=== PATIENT | female | born 1975 | race Caucasian/White ===

== ENCOUNTER 2020-06-18 16:24 | Outpatient (REF) | payer OTHER, SELFPAY ==
--- NOTE | 2020-06-18 | MM_ITS ---
EXAMINATION: MM SCREENING DIGITAL BREAST TOMOSYNTHESIS, BILATERAL CLINICAL INFORMATION: Screening. Asymptomatic. Family history breast cancer, mother. The lifetime risk of breast cancer based on the Tyrer-Cuzick Model is 26%. COMPARISON: Mammography: 12/10/2018, 11/06/2017, 10/19/2016 TECHNIQUE: Digital breast tomosynthesis is performed in both the craniocaudal and mediolateral oblique views along with computer-aided detection (CAD). Synthesized 2D images are generated from the tomosynthesis. FINDINGS: There are scattered areas of fibroglandular density (ACR BI-RADS breast composition Category b). Scattered parenchymal asymmetries are similar to prior studies. There is no developing density or interval mass or architectural abnormality. Again, there are dermal lesions overlying the mid inner and mid outer right breast. No significant changes. MM/MM tomosynthesis screening BI IMPRESSION: No mammographic evidence of malignancy. ASSESSMENT: BI-RADS 2: Benign RECOMMENDATION: 1. Routine annual mammography screening. 2. The lifetime risk of breast cancer based on the Tyrer-Cuzick Model is 26%. Additional annual adjunct screening with breast MRI may be of benefit in women with a risk score of 20% or greater. This patient's information was entered into a reminder system with a target due date for their next mammogram.
== END 2020-06-18 16:25 | disposition home or self-care (01) ==
LOC: HO.MAMMO 16:24
PROVIDERS: Visit Provider Internal Medicine
DX: Z12.31 Encounter for screening mammogram for malignant neoplasm of breast (principal)
CPT/HCPCS: 77063; 77067

== ENCOUNTER 2021-09-06 08:15 | Outpatient (REF) | payer OTHER, SELFPAY ==
--- NOTE | ~2021-09-06 | MM_ITS ---
EXAMINATION: MM SCREENING DIGITAL BREAST TOMOSYNTHESIS, BILATERAL CLINICAL INFORMATION: Screening. Asymptomatic. The lifetime risk of breast cancer based on the Tyrer-Cuzick Model is 25%. COMPARISON: Mammography: 06/18/2020, 12/10/2018, 11/06/2017, 10/19/2016, 09/13/2015, 07/13/2014 TECHNIQUE: Digital breast tomosynthesis is performed in both the craniocaudal and mediolateral oblique views along with computer-aided detection (CAD). Synthesized 2D images are generated from the tomosynthesis. FINDINGS: There are scattered areas of fibroglandular density (ACR BI-RADS breast composition Category b). There are no significant masses, abnormal calcifications, or other abnormalities. There are scattered shifting fibroglandular parenchymal densities overall similar to prior studies. Scattered asymmetries are similar to prior studies. There is no developing density or interval mass or architectural abnormality. No abnormal calcifications. The axilla and skin contours are unremarkable. MM/MM tomosynthesis screening BI IMPRESSION: No significant changes from prior studies. ASSESSMENT: BI-RADS 2: Benign RECOMMENDATION: 1. Routine annual mammography screening. 2. The lifetime risk of breast cancer based on the Tyrer-Cuzick Model is 25%. Additional annual adjunct screening with breast MRI may be of benefit in women with a risk score of 20% or greater. This patient's information was entered into a reminder system with a target due date for their next mammogram.
== END 2021-09-06 08:16 | disposition home or self-care (01) ==
LOC: HO.MAMMO 08:15
PROVIDERS: Visit Provider Internal Medicine
DX: Z12.31 Encounter for screening mammogram for malignant neoplasm of breast (principal)
CPT/HCPCS: 77063; 77067

== ENCOUNTER 2021-09-22 08:50 | Outpatient (REF) | payer OTHER, SELFPAY ==
[2021-09-22 15:10] LABS: CT PCR NOT DETECTED (Not Detect.); NG PCR NOT DETECTED (Not Detect.)
[2021-09-23 13:00] LABS: BV Int Neg Control Negative (Negative); BV Int Pos Control Positive (Positive)
[2021-09-25 09:36] LABS: HPV mRNA E6/E7 rflx Not Detected (Not Detected)
== END 2021-09-22 08:51 | disposition home or self-care (01) ==
LOC: HO.LAB 08:50
PROVIDERS: PCP Internal Medicine; Visit Provider Advanced Practice Midwife
DX: Z01.411 Encounter for gynecological examination (general) (routine) with abnormal findings (principal); Z11.51 Encounter for screening for human papillomavirus (HPV); Z20.2 Contact with and (suspected) exposure to infections with a predominantly sexual mode of transmission; N95.1 Menopausal and female climacteric states
CPT/HCPCS: 81025; 87480; 87491; 87510; 87591; 87624; 87660; 88142

== ENCOUNTER 2022-07-01 10:16 | Outpatient (REF) | payer OTHER, SELFPAY ==
--- NOTE | ~2022-07-01 | XR_ITS ---
EXAMINATION: XR CHEST CLINICAL INFORMATION: Cough COMPARISON: None TECHNIQUE: 2 views of the chest were obtained. FINDINGS: No significant abnormality is noted involving the heart, lungs, mediastinum, bony thorax or soft tissues. XR/XR chest 2V IMPRESSION: Unremarkable examination.
== END 2022-07-01 10:17 | disposition home or self-care (01) ==
LOC: HO.HMGCX 10:16
PROVIDERS: PCP Internal Medicine; Visit Provider Internal Medicine
DX: R05.9 Cough, unspecified (principal); M54.9 Dorsalgia, unspecified
CPT/HCPCS: 71046

== ENCOUNTER 2022-09-19 08:58 | Outpatient (REF) | payer OTHER, SELFPAY ==
--- NOTE | ~2022-09-19 | MM_ITS ---
EXAMINATION: MM SCREENING DIGITAL BREAST TOMOSYNTHESIS, BILATERAL CLINICAL INFORMATION: Screening. Asymptomatic. The lifetime risk of breast cancer based on the Tyrer-Cuzick Model is 21%. COMPARISON: Mammography: 09/06/2021, 06/18/2020, 12/10/2018 TECHNIQUE: Digital breast tomosynthesis is performed in both the craniocaudal and mediolateral oblique views along with computer-aided detection (CAD). Synthesized 2D images are generated from the tomosynthesis. FINDINGS: There are scattered areas of fibroglandular density (ACR BI-RADS breast composition Category b). Parenchymal pattern is similar to prior studies. Again, there are scattered bilateral parenchymal asymmetries without developing density or significant mass or architectural abnormality. No abnormal calcifications. There are multiple benign dermal calcifications overlying the posterior medial breasts. There is small smooth nodule anterior central left breast, decreased in size. There are dermal lesions overlying the mid inner and mid outer right breast again noted as incidental finding. The axilla are unremarkable. MM/MM tomosynthesis screening BI IMPRESSION: No mammographic evidence of malignancy. ASSESSMENT: BI-RADS 2: Benign RECOMMENDATION: Routine annual mammography screening. This patient's information was entered into a reminder system with a target due date for their next mammogram.
== END 2022-09-19 08:59 | disposition home or self-care (01) ==
LOC: HO.MAMMO 08:58
PROVIDERS: PCP Internal Medicine; Visit Provider Internal Medicine
DX: Z12.31 Encounter for screening mammogram for malignant neoplasm of breast (principal)
CPT/HCPCS: 77063; 77067

== ENCOUNTER → 2022-12-21 09:24 | Outpatient (BNVA) | payer OTHER, SELFPAY | PROVIDERS: PCP Internal Medicine; Visit Provider Advanced Practice Midwife ==

== ENCOUNTER 2023-02-03 17:26 | Outpatient (AMB) | payer OTHER, SELFPAY ==
--- NOTE | 2023-02-03 17:29 | MHC.PC.OV ---
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 Accompanied by: Self / Same As Patient Allergies No Known Allergies Allergy (Mild, Verified 02/03/23 17:41) NOT APPLICABLE Medication List - Last Reconciled 02/03/23 by Tawana Mayfield MD No Known Home Meds Tobacco use date assessed: 02/03/23 Dental Screening Dental Screen Date: 02/03/23 Did you have a dental visit in the last 12 months?: Yes Did you have a dental problem in the last 6 months where you did not have access to dental care?: No Was dental information given to patient?: Patient has dentist HPI HPI Comments History of Present Illness Details This is a 47-year-old female that comes for her physical exam. Due to problems at home she has developed mild major depression and would like a counseling referral. Last mammogram was September 2022 and was normal. Last Pap smear was September 2021 and was normal with HPV negative. Has never had a colonoscopy and is willing to do Cologuard to screen for colon cancer. No chest pain or shortness of breath. [facility] Medical History Lumbar pain Skin lesion Surgical History History of appendectomy History of biopsy Family History Father Diabetes Hypertension Stroke Mother Breast cancer Thyroid cancer Daughter In good health Sister In good health Brother In good health Social History Housing: House Alcohol intake: never Patient Tobacco Use Status: Current everyday Tobacco user Tobacco use type: Cigarette Cigarette Packs Per Day: 1 e-Cigarette/Vaping Use: Never Used Second Hand Smoke Exposure: No service: No Current occupational status: employed Current occupational exposures/hazards: No Cognitive needs: No Hearing needs: No Vision needs: No Female Reproductive History Menstrual Age of Menarche: 9 Questionnaire PHQ-9 Over the last 2 weeks, how often have you been bothered by any of the following problems? 1. Little interest or pleasure in doing things: several days 2. Feeling down, depressed, or hopeless: more than half the days 3. Trouble falling or staying asleep, or sleeping too much: several days 4. Feeling tired or having little energy: more than half the days 5. Poor appetite or overeating: nearly every day 6. Feeling bad about yourself - or that you are a failure or have let yourself or your family down: not at all 7. Trouble concentrating on things, such as reading the newspaper or watching television: not at all 8. Moving or speaking so slowly that other people could have noticed. Or the opposite - being so fidgety or restless that you have been moving around a lot more than usual: not at all 9. Thoughts that you would be better off or of hurting yourself in some way: not at all Total score: 9 Depression Screening Interpretation: Positive Depression Screening Follow-up: Existing condition 84164 - PHQ-9 Billing: Yes Source: Developed by Drs. Darrian Coe, Cinthia Salazar, Carlos Alberto Evangelista and colleagues, with an educational quan from [employer]. Thrive Questionnaire Date Thrive assessed: 02/03/23 I am a: Patient What is your living situation today?: I have a steady place to live Within the past 12 months, did the food you bought not last and you didn't have the money to get more?: Never true Within the past 12 months, did you worry whether your food would run out before you got money to buy more?: Never true Do you have trouble paying for medicines?: No Do you have trouble getting transportation to medical appointments?: No Do you have trouble paying your heating and electricity bill?: No Do you have trouble taking care of your child, family member or friend?: No Do you have trouble with day-to-day activities such as bathing, preparing meals, shopping, managing finances, etc.?: No Are you currently unemployed and looking for a job?: No Are you interested in more education?: No Please select the resources that you would like help with: None Currently or been in a relationship where the following occur: no concerns reported AUDIT C Alcohol Use Questionnaire (AUDIT-C) 1. How often do you have a drink containing alcohol?: Never Total Score: 0 CHARISSA-7 AMB Questionnaire CHARISSA-7 Date CHARISSA - 7 assessed: 02/03/23 Feeling nervous, anxious, or on edge: 0 = Not at all Not being able to stop or control worryin = Not at all Worrying too much about different things: 0 = Not at all Trouble relaxin = Not at all Being so restless that it is hard to sit still: 0 = Not at all Becoming easily annoyed or irritable: 0 = Not at all Feeling afraid as if something awful might happen: 0 = Not at all Total CHARISSA-7 score (0-4 normal; 5-9 mild; 10-14 moderate; 15-21 severe): 0 Source: Developed by Drs. Darrian Coe, Cinthia Salazar, Carlos Alberto Evangelista and colleagues, with an educational quan from [employer]. CHARISSA-7 Assessment Billing CHARISSA-7 Assessment Tool: CHARISSA-7 Assessment 98061 Review of Systems Const All systems reviewed & are unremarkable except as noted in HPI and below Eyes Reports no additional complaints, Denies change in vision and Denies other visual disturbances Card Denies chest pain at rest, Denies chest pain with activity, Denies edema, Denies irregular heart rhythm, Denies claudication, Denies dyspnea, Denies dyspnea on exertion, Denies orthopnea, Denies paroxysmal nocturnal dyspnea and Denies slow heart rate Resp Denies cough, Denies dyspnea and Denies dyspnea on exertion GI Denies abdominal pain, Denies change in bowel habits, Denies excessive flatus, Denies nausea and Denies vomiting Denies urinary incontinence, Denies urinary hesitancy and Denies urinary urgency Musc Denies abnormal gait, Denies atrophy, Denies deformity and Denies limited range of motion Skin/Breast Denies bleeding lesions, Denies changing lesions and Denies rash Neuro Denies abnormal gait and Denies lack of coordination Physical exam (Primary Care) Vital Signs: Last Vital Signs BP 118/80 02/03/23 17:34 BMI result Body Mass Index 30.2 Tobacco/Smoking Status: Tobacco use Status Tobacco use date assessed 02/03/23 02/03/23 17:41 Patient Tobacco Use Status Current everyday Tobacco 02/03/23 17:30 Tobacco use type Cigarette 02/03/23 17:30 e-Cigarette/Vaping Use Never Used 02/03/23 17:30 PHQ-9: PHQ-9 Score PHQ-9: Total score 9 02/03/23 17:46 Depression Screening Interpretation: Positive Depression Screening Follow-up: Existing condition Thrive Assessment: Date of Thrive Assessment Date Thrive assessed 02/03/23 02/03/23 17:41 Currently or been in a relationship where the following occur: no concerns reported Const Orientation/consciousness: patient oriented x3 HENMT Head: Yes normal to inspection, Yes normocephalic and Yes atraumatic Ears: external ears normal Eyes General: appearance normal, both eyes and all related structures Eyelids: Yes eyelids normal Conjunctivae: conjunctivae normal Neck Neck: Yes normal visual inspection and Yes supple Resp Effort & Inspection: normal respiratory effort Auscultation: clear to auscultation bilaterally Cardio Jugular venous distension: no JVD Rate: regular rate Rhythm: regular rhythm Heart sounds: S1 normal heart sound present and S2 normal heart sound present GI Inspection: Yes normal to inspection Palpation (GI): Soft to palpation and nontender Auscultation: normal bowel sounds Skin General skin exam: no rashes or lesions noted Neuro General: patient oriented x3 and no focal motor deficits Extrem General: Yes full ROM Psych Appearance: grossly normal Assessment and Plan Assessment & Plan (1) Physical exam: Code(s): Z00.00 - Encounter for general adult medical examination without abnormal findings Plan: Repeat in a year (2) Mild major depression: Code(s): F32.0 - Major depressive disorder, single episode, mild Plan: Referred to counseling. Orders: Orders Comprehensive [place]. Panel Fast Today Z00.00 - Encounter for general adult medical examination without abnormal findings Lipid Panel Today Z00.00 - Encounter for general adult medical examination without abnormal findings Referrals Counseling Referral F32.0 - Major depressive disorder, single episode, mild Cologuard Test Z12.11 - Encounter for screening for malignant neoplasm of colon, Z12.12 - Encounter for screening for malignant neoplasm of rectum Coding Level of Care Code Est Pt Prev Care 40-64y(78737) Diagnoses Physical exam Z00.00 Mild major depression F32.0 Additional Codes CHARISSA-7 Assessment Billing - CHARISSA-7 Assessment Tool: CHARISSA-7 Assessment 09807 ([id number]) Time Spent (min) 33
[2023-02-03 17:34] VITALS: BP 118/80; BMI 30.2
== END 2023-02-03 18:02 | disposition home or self-care (01) ==
PROVIDERS: Visit Provider Internal Medicine
DX: Z00.00 Encounter for general adult medical examination without abnormal findings (principal); F32.0 Major depressive disorder, single episode, mild
CPT/HCPCS: 99396

== ENCOUNTER 2023-08-31 09:07 | Outpatient (AMB) | payer OTHER, SELFPAY ==
--- NOTE | 2023-08-31 09:11 | A.OFFVIS_ITS ---
Intake Vital Signs 08/31/23 09:15 Height 5 ft 7 in Weight 198 lb BMI 31.0 BP 131/75 Blood Pressure Location Rt brachial Position Sitting Pulse 87 Intake Visit Reasons: Calculus of gallbladder Intake Note: Patient here to follow up from ER visit. Was seen at [facility] ER on 08-15-23. See [facility] Abd US dated 08-16-23. Patient c/o: Intermittent RUQ pain that gets worse at night. Ibuprofen helps. 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 Because of progression of symptoms this was investigated with vitor valenzuela demonstrated cholelithiasis. Patient otherwise has been able to tolerate a diet. She has regular bowel habits for her which are infrequent. She has never been jaundiced before. Chart was reviewed and patient evaluated COUNTS INCLUDE 234 BEDS AT THE [facility] Medical History Lumbar pain Skin lesion Surgical History History of appendectomy History of biopsy Family History Father Diabetes Hypertension Stroke Mother Breast cancer Thyroid cancer Daughter In good health Sister In good health Brother In good health Social History Housing: House Alcohol intake: never Patient Tobacco Use Status: Current everyday Tobacco user Tobacco use type: Cigarette Cigarette Packs Per Day: 1 e-Cigarette/Vaping Use: Never Used Second Hand Smoke Exposure: No service: No Current occupational status: employed Current occupational exposures/hazards: No Cognitive needs: No Hearing needs: No Vision needs: No Female Reproductive History Menstrual Age of Menarche: 9 Physical Exam Vital Signs: Last Vital Signs Pulse 87 08/31/23 09:15 BP 131/75 08/31/23 09:15 BMI result Body Mass Index 31.0 Eyes Other: Anicteric Chest Other: Chest breath sounds bilaterally, HS 1 in 2 GI Other: Abdomen soft, benign. Right lower quadrant scar from open appendectomy in the past. Mildly corpulent Assessment & Plan Assessment & Plan (1) Recurrent biliary colic: Code(s): K80.50 - Calculus of bile duct without cholangitis or cholecystitis without obstruction (2) Cholelithiasis: Code(s): K80.20 - Calculus of gallbladder without cholecystitis without obstruction Plan Risks, benefits, alternatives of laparoscopic possible open cholecystectomy revi ewed the patient included but not limited to bleeding, infection, recurrence of symptoms, numbness, pain, scarring, bowel or bile duct injury or leak, and the patient wishes to proceed. All questions answered. Arrangements were made for this. Coding Level of Care Code New Pt Level 5 (68619) Diagnoses Recurrent biliary colic K80.50 Cholelithiasis K80.20
[2023-08-31 09:15] VITALS: BP 131/75; PULSE 87; BMI 31.0
== END 2023-08-31 09:24 | disposition home or self-care (01) ==
PROVIDERS: PCP Internal Medicine; Referring Provider Internal Medicine; Visit Provider Surgery
DX: K80.50 Calculus of bile duct without cholangitis or cholecystitis without obstruction (principal); K80.20 Calculus of gallbladder without cholecystitis without obstruction
CPT/HCPCS: 99204

== ENCOUNTER → 2023-08-31 09:07 | Outpatient (BNVA) | payer OTHER, SELFPAY | PROVIDERS: PCP Internal Medicine; Referring Provider Internal Medicine; Visit Provider Surgery ==

== ENCOUNTER 2023-09-25 09:05 | Outpatient (REF) | payer OTHER, SELFPAY | END 2023-09-25 09:06 | disposition home or self-care (01) | LOC: HO.MAMMO 09:05 | PROVIDERS: PCP Internal Medicine; Visit Provider Internal Medicine | DX: Z12.31 Encounter for screening mammogram for malignant neoplasm of breast (principal) | CPT/HCPCS: 77063; 77067 ==

== ENCOUNTER → 2023-09-25 09:15 | Outpatient (BNV) | payer OTHER, SELFPAY | PROVIDERS: PCP Internal Medicine; Visit Provider Radiology Diagnostic Radiology | DX: Z12.31 Encounter for screening mammogram for malignant neoplasm of breast (principal) | CPT/HCPCS: 77063; 77067 ==

== ENCOUNTER 2023-10-15 10:28 | Day surgery (SDC) | payer OTHER, SELFPAY ==
[2023-10-15] VITALS (11 sets, daily range): BP systolic 103–172; BP diastolic 57–75; PULSE 63–88; RESP 15–17; TEMP 36.2–37.1; O2SAT 94–99; BMI 31.3
[2023-10-15] MEDS: Lactated Ringers 1,000 ML 50 ML IVCONT (11:53)
--- NOTE | 2023-10-15 12:03 | MHC.SHP ---
Pre-Procedural Eval Section A - 24 Hr Update-Section A only Date of Service: 10/15/23 The patient is an INPATIENT: No Changes since office visit: No Cold of Flu in the past 2 weeks, No New Medical Problems, No Changes in Medication and No Patient answered all questions The patient has been examined within 24 hours of the surgical procedure. The History & Physical has been completed within 30 days and I have reviewed it.: Yes Section B - Complete if H&P > 30 days Chief Complaint: Calculus of gallbladder,calculus of bile duct Allergies: Allergies Allergy/AdvReac Type Severity Reaction Status Date / Time No Known Allergies Allergy Mild NOT Verified 10/15/23 11:04 APPLICABLE Plan I have reviewed the history and physical and performed a pertinent physical examination on my patient. No changes have occurred unless specified. Time Spent With Patient Time: Total time managing care of this patient today ____ minutes.
--- NOTE | 2023-10-15 12:32 | HO.ANESPROP2 ---
[facility] Active Problems Active Problems: All Active Problems Recurrent biliary colic (Acute) Cholelithiasis (Acute) Right upper quadrant abdominal pain (Acute) Mild major depression (Acute) Upper back pain (Acute) Overweight (BMI 25.0-29.9) (Acute) Physical exam (Acute) Cervical cancer screening (Acute) Potential exposure to STD (Acute) Perimenopause (Acute) Well woman exam with routine gynecological exam (Acute) Skin lesion (Acute) Lumbar pain (Acute) Past Medical History Medical History Skin lesion Lumbar pain Family History Family History Father Diabetes Hypertension Stroke Mother Breast cancer Thyroid cancer Daughter In good health Sister In good health Brother In good health Surgical History Surgical History History of biopsy History of appendectomy History of Problems with Anesthesia: No Social History Social History Housing: House Alcohol intake: never Patient Tobacco Use Status: Current everyday Tobacco user Tobacco use type: Cigarette Cigarette Packs Per Day: 1 Cigarettes Per Day: 20.0 e-Cigarette/Vaping Use: Never Used Second Hand Smoke Exposure: No Use of substances other than those prescribed or required for medical reasons: No Are you DNR?: No Advance Directives: No Advance Directives Information Provided: Yes service: No Current occupational status: employed Current occupational exposures/hazards: No Cognitive needs: No Hearing needs: No Vision needs: No Meds Allergies Allergy/AdvReac Type Severity Reaction Status Date / Time No Known Allergies Allergy Mild NOT Verified 10/15/23 11:04 APPLICABLE Active Medications: Current Medications Lactated Ringer's (Lr) 1,000 mls @ 50 mls/hr IVCONT .Q20H KELLE Last Admin: 10/15/23 11:53 Dose: 50 mls/hr Exam Height,Weight and Vital Signs: Height 5 ft 7 in Weight 90.628 kg Last Vital Signs Temp 97.1 F 10/15/23 11:29 Pulse 75 10/15/23 11:29 Resp 15 10/15/23 11:29 BP 111/65 10/15/23 11:29 Pulse Ox 97 10/15/23 11:29 O2 Del Method Room Air 04/12/24 11:29 Airway Mallampati Class: II TM Dist: >3cm Neck ROM: Full Loose/Missing/Broken Teeth: No Heart: RRR Lungs: CTA Assessment and Plan Assessment Anesthesia Assessment: Anesthesia Plan Discussed and Chart Reviewed Final Anesthetic Review History of Problems with Anesthesia: No NPO: Yes ASA Class: II Final Preanesthetic Review: Meds/Allgs Chart Reviewed, Consent Obtained/Reviewed and Anes Risks/Benef Reviewed Patient Risk: Low Procedure Risk: Intermediate Anesthetic Plan Anesthetic Plan: GA Disposition: Standard PACU
[2023-10-15] MEDS: Acetaminophen 325 MG TABLET 650 MG PO (12:39)
--- NOTE | 2023-10-15 14:07 | W.PM.OPN ---
Operative Note Operative Note Date of Service: 10/15/23 Narrative: Preoperative diagnosis: [] Symptomatic gallbladder Postop diagnosis: [] The same Procedure [] laparoscopic cholecystectomy Surgeon: [] Flaco Pipe Blanks Cut Off Saw Operator: [] Kalina Type of Anesthesia: [] General Indication for surgery: [] Moderately corpulent abdomen. Very dense omental adhesions to the gallbladder. Massive gallstone in the cystic duct/Hortensia's pouch junction. Findings: [] Patient brought to the operating room, placed on operative table in supine position, after an adequate level of general anesthesia was induced, the patient's abdomen was prepped and draped in usual sterile fashion. Using a supraumbilical curvilinear incision, Riley technique was used to insufflate abdominal cavity to 15 mm of CO2. Upper midline and right subcostal ports were placed under direct laparoscopic view, and the patient placed in reverse Trendelenburg position, tilted to the left. Findings were as noted above. Omental adhesions were taken down from the gallbladder which was then grasped using laparoscopic graspers, and retracted superiorly and laterally. Hilum was approached with the common bile duct was identified and preserved throughout the procedure. Cystic artery and cystic duct were each identified, circumferentially skeletonized, each traced directly in the gallbladder and critical view obtained. Each was clipped proximally x2, distally x1, and transected. Gallbladder was then cauterized in the gallbladder fossa using Bovie. Specimen was placed in an Endo-Catch bag, a retrieved through the umbilical port. Abdominal cavity was copiously irrigated, and secured hemostasis. All ports removed under direct laparoscopic view. Wounds were closed in the following manner; umbilical wound is fascia reapproximated using interrupted 0 Vicryl sutures. Skin wounds were closed in subcuticular 4-0 Vicryl sutures followed by Steri-Strips and sterile dressings. Wounds were infiltrated 0.5% Marcaine at completion. Sponge, needle, and instrument counts reported correct. Patient tolerated the procedure well and emerged from anesthesia stable condition. EBL minimal
== END 2023-10-15 16:54 | disposition home or self-care (01) ==
PROVIDERS: PCP Internal Medicine; Visit Provider Surgery
PROC: 0FT44ZZ Resection of Gallbladder, Percutaneous Endoscopic Approach (ICD-10-PCS; CPT 47562; principal; 2023-10-15 14:00)
DX: K80.10 Calculus of gallbladder with chronic cholecystitis without obstruction (principal); K80.50 Calculus of bile duct without cholangitis or cholecystitis without obstruction; K82.8 Other specified diseases of gallbladder; F17.210 Nicotine dependence, cigarettes, uncomplicated
CPT/HCPCS: 47562; 88304; J0690; J1100; J1885; J2250; J2405; J2704; J2795; J3010

== ENCOUNTER → 2023-10-15 10:28 | Outpatient (BNV) | payer OTHER, SELFPAY | PROVIDERS: PCP Internal Medicine; Visit Provider Surgery | DX: K80.20 Calculus of gallbladder without cholecystitis without obstruction (principal) | CPT/HCPCS: 47562 ==

== ENCOUNTER 2023-10-25 09:59 | Outpatient (AMB) | payer OTHER, SELFPAY ==
--- NOTE | 2023-10-25 10:03 | A.OFFVIS_ITS ---
Intake Visit Reasons: s/p lap maykel Intake Note: Patient here s/p lap maykel. Reports incision healing well. Patient c/o: pain on tailbone after falling down stairs last week. 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 She has following a diet. Having regular bowel habits. She has minimal incisional discomfort. It is increasing her activity level. PFSH Medical History Skin lesion Lumbar pain Surgical History Hx laparoscopic cholecystectomy (10/15/23) History of biopsy History of appendectomy Family History Father Diabetes Hypertension Stroke Mother Breast cancer Thyroid cancer Daughter In good health Sister In good health Brother In good health Social History Housing: House Alcohol intake: never Comment: counts correct Patient Tobacco Use Status: Current everyday Tobacco user Tobacco use type: Cigarette Cigarette Packs Per Day: 1 Cigarettes Per Day: 20.0 e-Cigarette/Vaping Use: Never Used Second Hand Smoke Exposure: No service: No Current occupational status: employed Current occupational exposures/hazards: No Cognitive needs: No Hearing needs: No Vision needs: No Female Reproductive History Menstrual Age of Menarche: 9 Physical Exam Eyes Other: Anicteric GI Other: Abdomen is soft. All wounds clean dry and intact healing well Assessment & Plan Assessment & Plan (1) Status post laparoscopic cholecystectomy: Code(s): Z90.49 - Acquired absence of other specified parts of digestive tract Category: Medical Plan Patient has been given local instructions, no to commence work 1 week from now with 2 weeks light duty. All questions answered. Patient otherwise follow-up p.r.n.
== END 2023-10-25 10:13 | disposition home or self-care (01) ==
LOC: HO.HGS 09:59
PROVIDERS: PCP Internal Medicine; Visit Provider Surgery
DX: Z90.49 Acquired absence of other specified parts of digestive tract (principal)
CPT/HCPCS: 99024

== ENCOUNTER → 2023-10-25 09:59 | Outpatient (BNVA) | payer OTHER, SELFPAY | PROVIDERS: PCP Internal Medicine; Visit Provider Surgery ==

== ENCOUNTER 2024-01-10 14:59 | Outpatient (AMB) | payer OTHER, SELFPAY ==
--- NOTE | 2024-01-10 15:06 | A.OFFVIS_ITS ---
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 Lack of cycle, been over a year since last menstrual cycle, weight gain. 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 She has been unhappy with weight gain and has resumed care with the [facility] (or ???other name in [place]). And will be initiating a weight loss program again, she did lose weight with this program before but it came back again. She is sure she is in menopause she has not had a periods since 2021 she has not experienced difficulty with hot flashes or other problems. She has not contraceptive in years and is not concerned about it. She has no concerns at all about infections or any other problems at all the only other problems for her are around the weight gain and her left ankle gets swollen and has done so for years she has an appointment with her primary care provider coming up next month and plans to discuss things again. [facility] [place] Medical History Skin lesion Lumbar pain Surgical History Hx laparoscopic cholecystectomy (10/15/23) History of biopsy History of appendectomy Family History (Updated 01/10/24 @ 15:13 by Tami Dubois) Father Diabetes Hypertension Stroke Mother Breast cancer Thyroid cancer Daughter In good health Sister In good health Brother Brain aneurysm Social History Housing: House Alcohol intake: never Comment: counts correct Patient Tobacco Use Status: Current everyday Tobacco user Tobacco use type: Cigarette Cigarette Packs Per Day: 1 Cigarettes Per Day: 20.0 e-Cigarette/Vaping Use: Never Used Second Hand Smoke Exposure: No service: No Current occupational status: employed Current occupational exposures/hazards: No Cognitive needs: No Hearing needs: No Vision needs: No Female Reproductive History Menstrual Age of Menarche: 9 Date of last menstrual period: 04/17/22 Total pregnancies: 1 Full term: 1 Premature: 0 Number of Living Children: 1 Date of last pap smear: 09/23/23 History of abnormal pap smear: No History of STI: Yes (oral herpes) Date of Mammogram: 09/06/23 History of abnormal mammogram: No Physical Exam Vital Signs: Last Vital Signs BP 122/64 01/10/24 15:07 BMI result Body Mass Index 31.2 Const General: healthy appearing, comfortable, no acute distress, well developed and alert Nutritional Appearance: average body habitus Orientation/consciousness: patient oriented x3 Limitations: no limitations HEENT Head: Yes normocephalic Neck Neck: Yes normal visual inspection Thyroid: Thyroid normal Chest Chest palpation & inspection: normal inspection of the chest Breast/axilla inspection: normal inspection of the breasts and normal inspection of the axillae Breast/axilla palpation: normal palpation of the breasts and normal palpation of the axillae Resp Effort & Inspection: normal respiratory effort GI Inspection: Yes normal to inspection, No Abdominal wall edema and No distended Palpation (GI): Soft to palpation and nontender Other: External exam within normal limits vagina pink and moist cervix multiparous pink smooth normal appearing mucus uterus nontender not enlarged mobile adnexa nontender good tone with Kegel. General: Yes bladder normal to palpation External Female Exam: normal external appearance and normal appearance of the urethra Speculum Exam - Vagina: normal appearance of the vagina, normal palpation and normal vaginal discharge Speculum Exam - Cervix: normal appearance of the cervix, normal palpation and nontender Bimanual exam- vagina & uterus: normal bimanual exam, normal palpation, uterine size normal, bladder normal to palpation, consistency normal, normal palpation, uterine mobility normal, uterine shape normal, No Cervical tenderness present, non-tender and no cervical motion tenderness Bimanual Exam- Adnexa, other: normal adnexae, no masses, normal and No adnexal tenderness Neuro General: patient oriented x3 Assessment & Plan Assessment & Plan (1) Cervical cancer screening: Comment: 09/22/2021 Pap equals negative with negative HPV Code(s): Z12.4 - Encounter for screening for malignant neoplasm of cervix Category: Medical (2) Well woman exam with routine gynecological exam: Code(s): Z01.419 - Encounter for gynecological examination (general) (routine) without abnormal findings Category: Medical (3) Obesity (BMI 30.0-34.9): Comment: Is embarking on weight loss program per Dr. Kaiser in [place] Code(s): E66.9 - Obesity, unspecified Category: Medical Plan -----Discussed in this visit the following: healthy balanced diet, regular and consistent exercise, getting recommended health screens, doing the best she can for her particular health concerns, kegel exercises, pap smear screening and followup recommendations, mammography screening and SBE, normal changes in cycles in her life stage--- She is up-to-date with her mammograms, she will be seeing her primary care provider very soon. .---Discussed normal changes that happen premenapausally, perimenapausally, and postmenopausally, and ways to handle them. Discussed the normal variation, and the range of experiences that women experience. Discussed nutrition, health, need for exercise, both weight-bearing and aerobic. Also discussed the normal changes that happen with vaginal mucosal thinning and sensitivity, and simple more natural ways of handling these challenges.-she feels she is doing well with all these changes and they are not really too big deal for her her main issue is we would be and she is dealing with that by starting w her wt loss program Coding Level of Care Code Est Pt Prev Care 40-64y(14273) Diagnoses Cervical cancer screening Z12.4 Well woman exam with routine gynecological exam Z01.419 Obesity (BMI 30.0-34.9) E66.9
[2024-01-10 15:07] VITALS: BP 122/64; BMI 31.2
== END 2024-01-10 15:59 | disposition home or self-care (01) ==
PROVIDERS: PCP Internal Medicine; Visit Provider Advanced Practice Midwife
DX: Z12.4 Encounter for screening for malignant neoplasm of cervix (principal); Z01.419 Encounter for gynecological examination (general) (routine) without abnormal findings; E66.9 Obesity, unspecified
CPT/HCPCS: 99396

== ENCOUNTER → 2024-01-10 14:59 | Outpatient (BNVA) | payer OTHER, SELFPAY | PROVIDERS: PCP Internal Medicine; Visit Provider Advanced Practice Midwife ==

== ENCOUNTER 2024-02-08 17:14 | Outpatient (AMB) | payer OTHER, SELFPAY ==
--- NOTE | 2024-02-08 17:15 | MHC.PC.OV ---
Vital Signs 02/08/24 17:16 Height 5 ft 7 in Weight 193 lb BMI 30.2 BP 110/80 Blood Pressure Location Lt brachial Position Sitting Intake Visit Reasons: pe Intake Note: Patient here for a physical exam Credentialing Specialist Required: No Accompanied by: Self / Same As Patient Allergies No Known Allergies Allergy (Mild, Verified 02/08/24 17:45) NOT APPLICABLE Medication List - Last Reconciled 02/08/24 by Tawana Mayfield MD tirzepatide 5 mg subcut QWEEK Tobacco use date assessed: 02/08/24 Dental Screening Dental Screen Date: 02/08/24 Did you have a dental visit in the last 12 months?: Yes Did you have a dental problem in the last 6 months where you did not have access to dental care?: No Was dental information given to patient?: Patient has dentist HPI HPI Comments History of Present Illness Details This is a 48-year-old female that comes for her physical exam. Mammogram done 2023 was normal. Pap smear done 2021 was normal. Cologuard done 2022 was normal. Has no family history of colon cancer. Denies any acute complaints. Doing well. [facility] Medical History (Updated 02/08/24 @ 19:36 by Tawana Mayfield MD) Skin lesion Lumbar pain Surgical History Hx laparoscopic cholecystectomy (10/15/23) History of biopsy History of appendectomy Family History Father Diabetes Hypertension Stroke Mother Breast cancer Thyroid cancer Daughter In good health Sister In good health Brother Brain aneurysm Social History Housing: House Alcohol intake: never Comment: counts correct Patient Tobacco Use Status: Current everyday Tobacco user Tobacco use type: Cigarette Cigarette Packs Per Day: 1 Cigarettes Per Day: 20.0 e-Cigarette/Vaping Use: Never Used Second Hand Smoke Exposure: No service: No Current occupational status: employed Current occupational exposures/hazards: No Cognitive needs: No Hearing needs: No Vision needs: No Female Reproductive History Menstrual Age of Menarche: 9 Questionnaire PHQ-9 Over the last 2 weeks, how often have you been bothered by any of the following problems? 1. Little interest or pleasure in doing things: not at all 2. Feeling down, depressed, or hopeless: not at all 3. Trouble falling or staying asleep, or sleeping too much: not at all 4. Feeling tired or having little energy: not at all 5. Poor appetite or overeating: not at all 6. Feeling bad about yourself - or that you are a failure or have let yourself or your family down: not at all 7. Trouble concentrating on things, such as reading the newspaper or watching television: not at all 8. Moving or speaking so slowly that other people could have noticed. Or the opposite - being so fidgety or restless that you have been moving around a lot more than usual: not at all 9. Thoughts that you would be better off or of hurting yourself in some way: not at all Total score: 0 Depression Screening Interpretation: Negative Depression Screening Done: Yes 27544 - PHQ-9 Billing: Yes Source: Developed by Drs. Darrian Coe, Cinthia Salazar, Carlos Alberto Evangelista and colleagues, with an educational quan from [employer]. Thrive Questionnaire Date Thrive assessed: 02/08/24 I am a: Patient What is your living situation today?: I have a steady place to live Within the past 12 months, did the food you bought not last and you didn't have the money to get more?: Never true Within the past 12 months, did you worry whether your food would run out before you got money to buy more?: Never true Do you have trouble paying for medicines?: No Do you have trouble getting transportation to medical appointments?: No Do you have trouble paying your heating and electricity bill?: No Do you have trouble taking care of your child, family member or friend?: No Do you have trouble with day-to-day activities such as bathing, preparing meals, shopping, managing finances, etc.?: No Are you currently unemployed and looking for a job?: No Are you interested in more education?: No Please select the resources that you would like help with: None Currently or been in a relationship where the following occur: No concerns reported THRIVE Score: 0 AUDIT C Alcohol Use Questionnaire (AUDIT-C) 1. How often do you have a drink containing alcohol?: Never Total Score: 0 Score Reviewed/Action Taken: No CHARISSA-7 AMB Questionnaire CHARISSA-7 Date CHARISSA - 7 assessed: 02/08/24 Feeling nervous, anxious, or on edge: 0 = Not at all Not being able to stop or control worryin = Not at all Worrying too much about different things: 0 = Not at all Trouble relaxin = Not at all Being so restless that it is hard to sit still: 0 = Not at all Becoming easily annoyed or irritable: 0 = Not at all Feeling afraid as if something awful might happen: 0 = Not at all Total CHARISSA-7 score (0-4 normal; 5-9 mild; 10-14 moderate; 15-21 severe): 0 Source: Developed by Drs. Darrian Coe, Cinthia Salazar, Carlos Alberto Evangelista and colleagues, with an educational quan from [employer]. CHARISSA-7 Assessment Billing CHARISSA-7 Assessment Tool: CHARISSA-7 Assessment 83585 Review of Systems Const All systems reviewed & are unremarkable except as noted in HPI and below Card Denies chest pain at rest, Denies chest pain with activity, Denies edema, Denies irregular heart rhythm, Denies claudication, Denies dyspnea, Denies dyspnea on exertion, Denies orthopnea, Denies paroxysmal nocturnal dyspnea and Denies slow heart rate Resp Denies cough, Denies dyspnea and Denies dyspnea on exertion GI Denies abdominal pain, Denies change in bowel habits, Denies excessive flatus, Denies nausea and Denies vomiting Denies urinary incontinence, Denies urinary hesitancy and Denies urinary urgency Neuro Denies behavioral changes Psych Denies behavioral changes Physical exam (Primary Care) Vital Signs: Last Vital Signs BP 110/80 02/08/24 17:16 BMI result Body Mass Index 30.2 Tobacco/Smoking Status: Tobacco use Status Tobacco use date assessed 02/08/24 02/08/24 17:23 Patient Tobacco Use Status Current everyday Tobacco 02/08/24 17:23 Tobacco use type Cigarette 02/08/24 17:23 e-Cigarette/Vaping Use Never Used 02/08/24 17:23 PHQ-9: PHQ-9 Score PHQ-9: Total score 0 02/08/24 17:49 Depression Screening Interpretation: Negative Thrive Assessment: Date of Thrive Assessment Date Thrive assessed 02/08/24 02/08/24 17:26 Currently or been in a relationship where the following occur: No concerns reported [facility] Head: Yes normal to inspection, Yes normocephalic and Yes atraumatic Ears: external ears normal Eyes General: appearance normal, both eyes and all related structures Eyelids: Yes eyelids normal Conjunctivae: conjunctivae normal Neck Neck: Yes normal visual inspection and Yes supple Resp Effort & Inspection: normal respiratory effort Auscultation: clear to auscultation bilaterally Cardio Jugular venous distension: no JVD Rate: regular rate Rhythm: regular rhythm Heart sounds: S1 normal heart sound present and S2 normal heart sound present GI Inspection: Yes normal to inspection Palpation (GI): Soft to palpation and nontender Auscultation: normal bowel sounds Skin General skin exam: no rashes or lesions noted Neuro General: no focal motor deficits Extrem General: Yes full ROM Psych Appearance: grossly normal Assessment and Plan Assessment & Plan (1) Physical exam: Code(s): Z00.00 - Encounter for general adult medical examination without abnormal findings Plan: Repeat in a year. Orders: Orders Comprehensive [employer] Panel Fast Today Z00.00 - Encounter for general adult medical examination without abnormal findings Lipid Panel Today Z00.00 - Encounter for general adult medical examination without abnormal findings Thyroid Stimulating Hormone Today E66.9 - Obesity, unspecified Coding Level of Care Code Est Pt Prev Care 40-64y(02698) Diagnoses Physical exam Z00.00 Additional Codes CHARISSA-7 Assessment Billing - CHARISSA-7 Assessment Tool: CHARISSA-7 Assessment 39600 ([id number]) Time Spent (min) 31
[2024-02-08 17:16] VITALS: BP 110/80; BMI 30.2
== END 2024-02-08 17:54 | disposition home or self-care (01) ==
PROVIDERS: PCP Internal Medicine; Visit Provider Internal Medicine
DX: Z00.00 Encounter for general adult medical examination without abnormal findings (principal)
CPT/HCPCS: 99396

== ENCOUNTER 2024-10-21 10:05 | Outpatient (REF) | payer OTHER, SELFPAY | END 2024-10-21 10:06 | disposition home or self-care (01) | LOC: HO.MAMMO 10:05 | PROVIDERS: PCP Internal Medicine; Visit Provider Internal Medicine | DX: Z12.31 Encounter for screening mammogram for malignant neoplasm of breast (principal) | CPT/HCPCS: 77063; 77067 ==

== ENCOUNTER → 2024-10-21 10:15 | Outpatient (BNV) | payer OTHER, SELFPAY | PROVIDERS: PCP Internal Medicine; Visit Provider Internal Medicine | DX: Z12.31 Encounter for screening mammogram for malignant neoplasm of breast (principal) | CPT/HCPCS: 77063; 77067 ==

== ENCOUNTER 2025-06-19 14:57 | Outpatient (AMB) | payer OTHER, SELFPAY ==
--- NOTE | 2025-06-19 15:11 | MHC.PC.OV ---
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 Accompanied by: Self / Same As Patient Allergies No Known Allergies Allergy (Mild, Verified 06/19/25 15:39) NOT APPLICABLE Medication List - Last Reconciled 06/19/25 by Tawana Mayfield MD bupropion HCl XL (Wellbutrin XL) 150 mg PO QAM 90 days tirzepatide 5 mg (0.5 mL) subcut QWEEK 4 weeks valacyclovir 1,000 mg PO Q8H 7 days Tobacco use date assessed: 06/19/25 Dental Screening Dental Screen Date: 06/19/25 Did you have a dental visit in the last 12 months?: Yes Did you have a dental problem in the last 6 months where you did not have access to dental care?: Yes Was dental information given to patient?: Patient has dentist HPI HPI Comments History of Present Illness Details The patient is a 50 year old female presenting for a physical exam. She has no known medication allergies. Current medications include tirzepatide 5 mg weekly and valacyclovir as needed for outbreaks. Her surgical history includes a cholecystectomy, an appendectomy, and a biopsy of a thyroid nodule which was benign. For colon cancer screening, she completed a Cologuard test about two years ago. She had a mammogram appointment rescheduled from April to July. The patient's father is and had a history of diabetes, hypertension, and stroke. Her mother is also and had a history of breast cancer and thyroid cancer. The patient reports smoking about one pack of cigarettes per day and is abstinent from alcohol. She has been contemplating smoking cessation but is not ready to quit yet. She has a prior history of quitting for five years using Chantix, which she found effective without side effects, and would be willing to try it again in the future. She relapsed after her mother . [facility] Medical History Skin lesion Lumbar pain Surgical History Hx laparoscopic cholecystectomy (10/15/23) History of biopsy History of appendectomy Family History Father Diabetes Hypertension Stroke Mother Breast cancer Thyroid cancer Daughter In good health Sister In good health Brother Brain aneurysm Social History Housing: House Alcohol intake: never Comment: counts correct Patient Tobacco Use Status: Current everyday Tobacco user Tobacco use type: Cigarette Cigarette Packs Per Day: 1 Cigarettes Per Day: 20.0 e-Cigarette/Vaping Use: Never Used Second Hand Smoke Exposure: No service: No Current occupational status: employed Current occupational exposures/hazards: No Cognitive needs: No Hearing needs: No Vision needs: Yes (rx glasses) Female Reproductive History Menstrual Age of Menarche: 9 Questionnaire PHQ-9 Over the last 2 weeks, how often have you been bothered by any of the following problems? 1. Little interest or pleasure in doing things: not at all 2. Feeling down, depressed, or hopeless: not at all 3. Trouble falling or staying asleep, or sleeping too much: not at all 4. Feeling tired or having little energy: not at all 5. Poor appetite or overeating: not at all 6. Feeling bad about yourself - or that you are a failure or have let yourself or your family down: not at all 7. Trouble concentrating on things, such as reading the newspaper or watching television: not at all 8. Moving or speaking so slowly that other people could have noticed. Or the opposite - being so fidgety or restless that you have been moving around a lot more than usual: not at all 9. Thoughts that you would be better off or of hurting yourself in some way: not at all Total score: 0 Depression Screening Interpretation: Negative Depression Screening Done: Yes 66323 - PHQ-9 Billing: Yes Source: Developed by Drs. Darrian Coe, Cinthia Salazar, Carlos Alberto Evangelista and colleagues, with an educational quan from [employer]. Thrive Questionnaire Date Thrive assessed: 06/19/25 I am a: Patient What is your living situation today?: I have a steady place to live Within the past 12 months, did the food you bought not last and you didn't have the money to get more?: Never true Within the past 12 months, did you worry whether your food would run out before you got money to buy more?: Never true Do you have trouble paying for medicines?: No Do you have trouble getting transportation to medical appointments?: No Do you have trouble paying your heating and electricity bill?: No Do you have trouble taking care of your child, family member or friend?: No Do you have trouble with day-to-day activities such as bathing, preparing meals, shopping, managing finances, etc.?: No Are you currently unemployed and looking for a job?: No Are you interested in more education?: No Please select the resources that you would like help with: None Currently or been in a relationship where the following occur: No concerns reported THRIVE Score: 0 AUDIT C Alcohol Use Questionnaire (AUDIT-C) 1. How often do you have a drink containing alcohol?: Never Total Score: 0 Score Reviewed/Action Taken: No CHARISSA-7 AMB Questionnaire CHARISSA-7 Date CHARISSA - 7 assessed: 06/19/25 Feeling nervous, anxious, or on edge: 0 = Not at all Not being able to stop or control worryin = Not at all Worrying too much about different things: 0 = Not at all Trouble relaxin = Not at all Being so restless that it is hard to sit still: 0 = Not at all Becoming easily annoyed or irritable: 0 = Not at all Feeling afraid as if something awful might happen: 0 = Not at all Total CHARISSA-7 score (0-4 normal; 5-9 mild; 10-14 moderate; 15-21 severe): 0 Source: Developed by Drs. Darrian Coe, Cinthia Salazar, Carlos Alberto Evangelista and colleagues, with an educational quan from [employer]. CHARISSA-7 Assessment Billing CHARISSA-7 Assessment Tool: CHARISSA-7 Assessment 10370 Review of Systems Const All systems reviewed & are unremarkable except as noted in HPI and below Card Denies chest pain at rest, Denies chest pain with activity, Denies edema, Denies irregular heart rhythm, Denies claudication, Denies dyspnea, Denies dyspnea on exertion, Denies orthopnea, Denies paroxysmal nocturnal dyspnea and Denies slow heart rate Resp Denies cough, Denies dyspnea and Denies dyspnea on exertion GI Denies abdominal pain, Denies change in bowel habits, Denies excessive flatus, Denies nausea and Denies vomiting Denies urinary incontinence, Denies urinary hesitancy and Denies urinary urgency Musc Denies atrophy, Denies deformity and Denies limited range of motion Skin/Breast Denies bleeding lesions, Denies changing lesions and Denies rash Physical exam (Primary Care) Vital Signs: Last Vital Signs Temp 96.9 F 06/19/25 15:12 Pulse 60 06/19/25 15:12 Resp 16 06/19/25 15:12 BP 110/70 06/19/25 15:12 Pulse Ox 99 06/19/25 15:12 Oxygen Delivery Method Room Air 06/19/25 15:12 BMI result Body Mass Index 24.6 Tobacco/Smoking Status: Tobacco use Status Tobacco use date assessed 06/19/25 06/19/25 15:21 Patient Tobacco Use Status Current everyday Tobacco 06/19/25 15:11 Tobacco use type Cigarette 06/19/25 15:11 e-Cigarette/Vaping Use Never Used 06/19/25 15:11 Are you ready to quit: No Tobacco cessation counseling provided: Yes Items discussed: Nicotine replacement and [employer]uitWorks Relapse Prevention: discussed the importance of a supportive environment, discussed extending NRT, discussed negative mood or depression after quitting, weight gain after smoking is common and discussed dietary, exercise and/or lifestyle changes Number of minutes spent counselin CPT code: Less than 3 minutes PHQ-9: PHQ-9 Score PHQ-9: Total score 0 06/19/25 15:42 Depression Screening Interpretation: Negative Thrive Assessment: Date of Thrive Assessment Date Thrive assessed 06/19/25 06/19/25 15:21 Currently or been in a relationship where the following occur: No concerns reported [facility] Head: Yes normal to inspection, Yes normocephalic and Yes atraumatic Ears: external ears normal Eyes General: appearance normal, both eyes and all related structures Eyelids: Yes eyelids normal Conjunctivae: conjunctivae normal Neck Neck: Yes normal visual inspection and Yes supple Resp Effort & Inspection: normal respiratory effort Auscultation: clear to auscultation bilaterally Cardio Jugular venous distension: no JVD Rate: regular rate Rhythm: regular rhythm Heart sounds: S1 normal heart sound present and S2 normal heart sound present GI Inspection: Yes normal to inspection Palpation (GI): Soft to palpation and nontender Auscultation: normal bowel sounds Skin General skin exam: no rashes or lesions noted Neuro General: no focal motor deficits Extrem General: Yes full ROM Psych Appearance: grossly normal Coding Level of Care Code Est Pt Prev Care 40-64y(87372) Diagnoses Physical exam Z00.00 Additional Codes CHARISSA-7 Assessment Billing - CHARISSA-7 Assessment Tool: CHARISSA-7 Assessment 91808 ([id number]) PHQ-9 - 17856 - PHQ-9 Billing: Yes ([id number]) Time Spent (min) 31 Assessment & Plan Assessment & Plan (1) Physical exam: Code(s): Z00.00 - Encounter for general adult medical examination without abnormal findings Category: Medical Plan Plan 1. Physical exam A referral will be placed for lung cancer screening with a low-dose CT scan due to her smoking history. A fasting lipid panel was ordered to assess cholesterol levels, with emphasis placed on the increased cardiovascular risk associated with smoking, requiring a lower target cholesterol. The need for a Tetanus vaccine was discussed, as her last one was likely 17 years ago, and she was advised she could receive it at a pharmacy or via a nurse visit. The patient declined the influenza vaccine. She was reminded about her rescheduled mammogram for July. 2. Tobacco Use Disorder The patient smokes about one pack per day. She has been thinking about quitting but is not ready yet. She previously quit for five years using Chantix (varenicline) and had a good experience, expressing willingness to use it again. She was educated about potential weight gain and mood changes with cessation and the need for a supportive environment. A prescription for varenicline will be provided when she is ready. She was also advised to research [employer] online for support. Orders: Orders Lipid Panel Today E78.5 - Hyperlipidemia, unspecified Comprehensive [place]. Panel Fast Today Z00.00 - Encounter for general adult medical examination without abnormal findings Referrals Lung Cancer Screening Referral F17.200 - Nicotine dependence, unspecified, uncomplicated
[2025-06-19 15:12] VITALS: BP 110/70; PULSE 60; RESP 16; TEMP 36.1; O2SAT 99; BMI 24.6
--- OUTSIDE RECORDS SUMMARY | 2025-06-19 19:19 | XMS_ITS | Clinical Summary ---
Author Organization [facility] ity Address [address] [place] [address] Care Team Providers Care Rn Plastic Surgery Name Role Phone Unavailable Primary Care Provider Unavailabl e Social History Tobacco Use Types Packs/Day Years Used Date Smoking Tobacco: Never Assessed Comments Unknown Sex and Gender Information Value Date Recorded Sex Assigned at Not on file Legal Sex Female 1:34 PM EDT Gender Identity Not on file Sexual Orientation Not on file Plan of Treatment Health Maintenance Due Date Last Done Comments Breast Cancer Screening 1973 Colorectal Cancer Screening: Colonoscopy 1973 DTaP,Tdap,and Td Vaccines (1 - Tdap) 02/13/1992 Hepatitis B Vaccines (1 of 3 - 19+ 3-dose series) 02/13/1992 Cervical Cancer Screening: P ap Smear 1994 Pneumococcal Vaccine: 50+ Ye ars (1 of 1 - PCV) 2023 Zoster Vaccines (1 of 2) 2023 HIV Screening 02/04/2024 Hepatitis C Screening 02/04/2024 Social Influencers of Health Screening 02/04/2024 Depression Screening 07/05/2024 COVID-19 Vaccine (1 - 2024-2 6 season) 2025 Influenza Vaccine (#1) 2025 RSV Immunization Adult Patie nts (1 - 1-dose 75+ series) 02/13/2048 HIB Vaccines Aged Out No longer eligi ble based on patient's age to complete this topic HPV Vaccines Aged Out No longer eligi ble based on patient's age to complete this topic Hepatitis A Vaccines Aged Out No long er eligible based on patient's age to complete this topic IPV Vaccines Aged Out No longer eligi ble based on patient's age to complete this topic MMR Vaccines Aged Out No longer eligi ble based on patient's age to complete this topic Meningococcal ACWY Vaccine Aged Out N o longer eligible based on patient's age to complete this topic Meningococcal B Vaccine Aged Out No l onger eligible based on patient's age to complete this topic RSV Immunization Patients Un ian 20 months Aged Out No longer eligible b ased on patient's age to complete this topic Varicella Vaccines Aged Out No longer eligible based on patient's age to complete this topic
== END 2025-06-19 15:56 | disposition home or self-care (01) ==
LOC: HO.HMCH 14:58
PROVIDERS: PCP Internal Medicine; Visit Provider Internal Medicine
DX: Z00.00 Encounter for general adult medical examination without abnormal findings (principal)

== ENCOUNTER → 2025-06-19 14:57 | Outpatient (BNVA) | payer OTHER, SELFPAY | PROVIDERS: PCP Internal Medicine; Visit Provider Internal Medicine | DX: Z00.00 Encounter for general adult medical examination without abnormal findings (principal) | CPT/HCPCS: 96127 ==